=== PATIENT | male | born 1995 | race Caucasian/White ===

== ENCOUNTER 2024-11-23 09:55 | Emergency (ER) | payer OTHER ==
[~2024-11-23] VITALS: Ht 165.1 cm; Wt 72.0 kg
[2024-11-23 10:02] VITALS: O2SAT 100
[2024-11-23] MEDS: IBUPROFEN 600MG TABLET PO STA (10:40)
[2024-11-23 10:43] VITALS: BP 102/69; PULSE 65; RESP 18; TEMP 36.7; O2SAT 100
[2024-11-23 11:26] LABS: BASOPHILS % 0.7 % (0.0-2.0); DIFFERENTIAL COMMENT 0; EOSINOPHILS % 0.5 % (0.0-5.0); HEMOGLOBIN. 13.8 g/dL (14.0-18.0); LYMPHOCYTES % 36.7 % (20.0-50.0); MEAN CORPUSCULAR HEMOGLOBIN 28.6 pg (28.0-32.0); MEAN CORPUSCULAR HGB CONC 32.8 g/dL (31.0-37.0); MEAN CORPUSCULAR VOLUME 87.3 fL (80.0-94.0); MEAN PLATELET VOLUME 9.2 fl (7.4-10.4); MONOCYTES % 7.8 % (2.0-8.0); NEUTROPHILS % 54.3 % (40.0-76.0); PLATELET 243 x1000/uL (130-400); RED BLOOD CELL COUNT 4.81 mill/uL (4.7-6.1); RED CELL DISTRIBUTION WIDTH 13.9 % (11.6-14.6); WHITE BLOOD COUNT 5.5 x1000/uL (4.5-11.0)
[2024-11-23 11:28] LABS: CHLORIDE 106 mEq/L (98-107); POTASSIUM 4.6 mEq/L (3.5-5.1); SODIUM 142 mEq/L (136-145)
[2024-11-23 11:29] LABS: CARBON DIOXIDE 30 mEq/L (21-32)
[2024-11-23 11:30] LABS: CALCIUM 9.7 mg/dL (8.7-10.4)
[2024-11-23 11:34] LABS: CREATININE 0.7 mg/dL (0.6-1.3); GLUCOSE 93 mg/dL (70-105)
[2024-11-23 11:35] LABS: UREA NITROGEN BLOOD 8 mg/dL (9-23)
[2024-11-23 11:57] LABS: CLARITY URINE CLEAR (CLEAR); COLOR URINE YELLOW (YELLOW); GLUCOSE URINE NEGATIVE (NEGATIVE); KETONES URINE NEGATIVE (NEGATIVE); LEUKOCYTE ESTERASE URINE NEGATIVE (NEGATIVE); NITRITE URINE NEGATIVE (NEGATIVE); OCCULT BLOOD URINE NEGATIVE (NEGATIVE); PH URINE 8.5 (4.5-8.0); PROTEIN URINE NEGATIVE (NEGATIVE); UROBILINOGEN URINE 0.2 E.U./dL (0.2-1.0)
[2024-11-23] MEDS ORDERED: DOXYCYCLINE HYCLATE 100MG CAPSULE PO ONE (12:15)
[2024-11-23] MEDS ORDERED: CEFTRIAXONE SODIUM 500MG VIAL IM ONE (12:15)
[2024-11-23] MEDS: DOXYCYCLINE HYCLATE 100MG CAPSULE PO SCH (12:38)
[2024-11-23] MEDS: CEFTRIAXONE SODIUM 500MG VIAL IM SCH (12:38)
[2024-11-23] MEDS: MAGNESIUM/ALUMINUM HYDROXIDE/SIMETHICONE 30ML UDC PO ONE (12:44)
== END 2024-11-23 13:29 | disposition home or self-care (01) ==
LOC: ER 09:55
DX: K29.70 Gastritis, unspecified, without bleeding (principal); Z90.49 Acquired absence of other specified parts of digestive tract
CPT/HCPCS: 99285; 74176; 80048; 81003; 83690; 85025; 36415; 96372; J0696